=== PATIENT | male | born 1950 | race Caucasian/White ===

== ENCOUNTER 2019-11-02 03:05 | Inpatient (IN) | payer MEDICARE, MEDICAID ==
[~2019-11-02] VITALS: Ht 185.4 cm; Wt 80.2 kg
[2019-11-02] MEDS ORDERED: HEPARIN 1,000 UNITS/ml 1ML VIAL IV ONE (03:30)
[2019-11-02] MEDS ORDERED: MORPHINE SULFATE 4 MG/ML SYR/VIAL IV ONE ×3 (03:30→04:00)
[2019-11-02] MEDS ORDERED: METOPROLOL TARTRATE 25 MG TAB PO ONE (03:30)
[2019-11-02] MEDS ORDERED: ATORVASTATIN 20 MG TAB PO ONE (03:30)
[2019-11-02] MEDS ORDERED: NITROGLYCERIN 0.4 MG SL TAB SL PRN ×2 (03:30→05:45)
[2019-11-02] MEDS ORDERED: ASPirin 81 mg TAB PO ONE (03:30)
[2019-11-02] MEDS ORDERED: ONDANSETRON HCL 4 MG/2 ML VIAL ONE (03:33)
[2019-11-02] MEDS ORDERED: METOPROLOL TARTRATE 25 MG TAB ONE (03:35)
[2019-11-02] MEDS ORDERED: ASPirin 325 MG TAB ONE (03:36)
[2019-11-02] MEDS ORDERED: HEPARIN SODIUM (PORCINE) 5000 UNITS/ML 1ML VIAL ONE (03:36)
[2019-11-02] MEDS ORDERED: ONDANSETRON HCL 4 MG/2 ML VIAL IV ONE (03:45)
[2019-11-02] MEDS ORDERED: HEPARIN IN NS 1000Units/500mL 1,500 ML ONE (03:53)
[2019-11-02] MEDS ORDERED: LIDOCAINE 2%HCL (LOCAL ANESTH.) INJ 20ML MDV ONE (03:53)
[2019-11-02] MEDS ORDERED: IOHEXOL 350 MG/ML 100ML IJ ONE ×2 (03:53→04:54)
[2019-11-02] MEDS: MORPHINE SULF INJ 2 MG/ML SYRINGE 1ML ONE ×2 (03:59→04:09)
[2019-11-02 04:01] LABS: Basophils # (auto) 0.1 uL; Basophils % (auto) 0.8 % (0.0-2.0); Eosinophils # (auto) 0.4 uL; Eosinophils % (auto) 5.1 % (0.0-7.0); Hematocrit 49.1 % (41.0-53.0); Hemoglobin 16.6 g/dL (13.5-17.5); Lymphocytes # (auto) 2.6 uL; Lymphocytes % (auto) 33.7 % (10.0-50.0); Mean Corpuscular Hemoglobin 30.4 pg (28.0-32.0); Mean Corpuscular Hgb Conc. 33.9 g/dL (32.0-36.0); Mean Corpuscular Volume 89.6 fL (80.0-100.0); Monocytes # (auto) 0.7 uL; Monocytes % (auto) 8.6 % (0.0-12.0); Neutrophils % (auto) 51.8 % (37.0-80.0); Nucleated Red Blood Cells % 0.1 %; Platelet Count (auto) 205 10^3/uL (140-450); Red Blood Cells 5.48 10^6/uL (4.5-5.90); Red Cell Distribution Width 14.5 % (11.8-14.3); White Blood Cell 7.8 10^3/uL (4.4-10.8)
[2019-11-02] MEDS ORDERED: ANGIOMAX 250 MG VIAL IV ONE (04:05)
[2019-11-02] MEDS ORDERED: SODIUM CHL 0.9% 50 ML ONE (04:06)
[2019-11-02] MEDS ORDERED: fentaNYL CITRATE 100 MCG/2 ML VL ONE (04:06)
[2019-11-02] MEDS ORDERED: MIDAZOLAM HCL 1MG/1ML-2 ML VIAL ONE (04:06)
[2019-11-02] MEDS ORDERED: ATROPINE SULF 1 MG/10ml SYR ONE (04:09)
[2019-11-02 04:17] LABS: INR 1.05 (0.9-1.15); Partial Thromboplastin Time 26.8 sec (23.64-32.05)
[2019-11-02 04:30] LABS: Albumin 3.6 g/dL (3.4-5.0); Calcium 9.3 mg/dL (8.5-10.1); Magnesium 2.2 mg/dL (1.6-2.6); Potassium 4.3 mmol/L (3.5-5.1)
[2019-11-02 04:35] LABS: BUN/Creatinine Ratio 13.9; Bilirubin, Total 0.3 mg/dL (0.2-1.0); Total Protein 8.1 g/dL (6.4-8.2)
[2019-11-02] MEDS ORDERED: EPTIFIBATIDE INJ (2MG/ML) 10ML VIAL IV ONE ×2 (04:40→04:44)
[2019-11-02] MEDS ORDERED: TICAGRELOR 90 MG TAB ONE (05:01)
[2019-11-02] MEDS ORDERED: MORPHINE SULF INJ 2 MG/ML SYRINGE 1ML IV PRN (05:45)
--- NOTE | 2019-11-02 06:24 | NUR ---
Telemetry admit from ER Patient admitted to Telemetry unit and oriented to primary RN, unit, room, bed, and unit policies regarding patient care and visiting hours. Patient now on continuous telemetry monitoring, tele box # [id number] and telemetry reading on arrival to unit is sinus rhythm. Patient weighed by bedscale and encouraged to call if they need something. All questions and concerns addressed, patient verbalized understanding.
[2019-11-02] MEDS ORDERED: NAP500T PO (06:54)
[2019-11-02] MEDS ORDERED: TAMS0.4C36 PO (06:54)
--- NOTE | 2019-11-02 08:00 | NUR ---
OPENING SHIFT NOTE ASSUMED CARE OF PATIENT AWAKE AND ALERT. NO S/S OF DISTRESS NOTED OR COMPLAINTS OF PAIN. RIGHT WRIST SITE HAS DRESSING IN PLACE. SAFEGAURD IS APPLIED TO RIGHT GROIN SITE. 20ML OF AIR TAKEN OUT BY NOC NURSE. SITE IS NONTENDER, NO SWELLING OR ECCHYMOSIS NOTED. PT IS TO REMAIN FLAT UNTIL 0930, HE VERBALIZES UNDERSTANDING. PT UPDATED ON POC FOR THE DAY AND ALL QUESTIONS ANSWERED. BED IS IN LOWEST, LOCKED POSITION WITH SIDE RAILS UP X2 AND CALL LIGHT WITHIN REACH. WILL CONTINUE TO MONITOR Q1H AND PRN.
[2019-11-02 09:26] VITALS: BP 95/62
--- NOTE | 2019-11-02 10:20 | NUR ---
SAFEGAURD 10ML OF AIR TAKEN OUT OF SAFEGAURD. SITE IS NONTENDER, NO SWELLING OR ECCHYMOSIS NOTED. WILL CONTINUE TO MONITOR.
--- NOTE | 2019-11-02 10:45 | NUR ---
CRITICAL TROP RECEIVED CALL FROM CHEMISTRY REGARDING A CRITICAL TROPONIN OF 68.3. THIS IS AN EXPECTED FINDING AFTER A CARDIAC CATHETERIZATION, MD WILL NOT BE NOTIFIED. WILL CONTINUE TO MONITOR PATIENT.
--- NOTE | 2019-11-02 10:50 | NUR ---
SAFEGAURD ANOTHER 10ML OF AIR WAS TAKEN OUT OF SAFEGAURD AT RIGHT GROIN. SITE IS STILL ASYMPTOMATIC, NO SWELLING, TENDERNESS, OR ECHHYMOSIS NOTED. WILL CONTINUE TO MONITOR.
[2019-11-02 11:00] LABS: Urine Bacteria NONE SEEN /hpf (None Seen); Urine Blood 2+ /uL (Negative); Urine WBC 5 /hpf (0 - 3)
[2019-11-02 11:14] LABS: Alcohol, Urine < 3.0 mg/dL (0-5); Amphetamine Screen, Urine POSITIVE (NEGATIVE); Barbiturate Scree,Urine NEGATIVE (NEGATIVE); Benzodiazephine Screen, Urine POSITIVE (NEGATIVE); Cannabinoid Screen, Urine POSITIVE (NEGATIVE); Cocaine Screen, Urine NEGATIVE (NEGATIVE); Phencyclidine Screen, Urine NEGATIVE (NEGATIVE)
[2019-11-02 11:18] LABS: Urine Specific Gravity > 1.050 (1.001-1.035)
[2019-11-02 11:21] LABS: Opiate Scree,Urine POSITIVE (NEGATIVE)
--- NOTE | 2019-11-02 12:00 | NUR ---
SAFEGAURD ANOTHER 10ML OF AIR WAS TAKEN OUT OF SAFEGAURD AT RIGHT GROIN. TOTAL OF 60 OUT SO FAR. SITE IS STILL ASYMPTOMATIC, NO SWELLING, TENDERNESS, OR ECHHYMOSIS NOTED. WILL CONTINUE TO MONITOR.
[2019-11-02 13:00] VITALS: BP 91/59
--- NOTE | 2019-11-02 14:00 | NUR ---
SAFEGAURD SAFEGAURD REMOVED, CLEAR DRESSING APPLIED. SITE IS SOFT AND NONTENDER WITH NO ECCHYMOSIS NOTED. WILL CONTINUE TO MONITOR.
[2019-11-02] MEDS: SODIUM CHLORIDE 0.9% 500 ML IV SCH ×2 (14:10→18:48)
[2019-11-02 17:03] VITALS: BP 97/62
[2019-11-02 22:00] VITALS: BP 97/61
[2019-11-03] MEDS: SODIUM CHLORIDE 0.9% 500 ML IV SCH ×2 (00:24→04:30)
[2019-11-03 05:00] VITALS: BP 103/60
--- NOTE | 2019-11-03 08:00 | NUR ---
OPENING SHIFT NOTE ASSUMED CARE OF PATIENT RESTING IN BED. RIGHT GROIN CATH SITE ASSESSED. SITE IS SOFT, NO ECCHYMOSIS NOTED, PATIENT DOES SAY THE SITE IS TENDER TO THE TOUCH. PT UPDATED ON POC FOR THE DAY AND ALL QUESTIONS ANSWERED. BED IS IN LOWEST, LOCKED POSITION WITH SIDE RAILS UP X2 AND CALL LIGHT WITHIN REACH. WILL CONTINUE TO MONITOR Q1H AND PRN.
[2019-11-03 09:00] VITALS: BP 104/62
[2019-11-03 13:00] VITALS: BP 119/78
[2019-11-03 17:00] VITALS: BP 123/72
--- NOTE | 2019-11-03 17:24 | NUR ---
DR HIGINIO SYLVESTER IN TO SEE PATIENT. INFORMED PATIENT OF POSSIBLE DISCHARGE TOMORROW.
[2019-11-03] MEDS ORDERED: TAMSULOSIN HYDROCHLORIDE 0.4 MG CAP PO ONE (21:51)
[2019-11-03 22:00] VITALS: BP 122/96
[2019-11-03] MEDS ORDERED: ATORVASTATIN 20 MG TAB PO SCH (22:00)
[2019-11-03] MEDS ORDERED: ACETAMINOPHEN 325 MG TAB PO PRN (22:00)
[2019-11-04 05:00] VITALS: BP 90/67
--- NOTE | 2019-11-04 08:00 | NUR ---
OPENING SHIFT NOTE ASSUMED CARE OF PATIENT RESTING WITH EVEN RESPIRATIONS. BED IS IN LOWEST, LOCKED POSITION WITH SIDE RAILS UP X2 AND CALL LIGHT WITHIN REACH. WILL CONTINUE TO MONITOR.
[2019-11-04 09:00] VITALS: BP 108/73
[2019-11-04] MEDS ORDERED: CLOPIDOGREL BISULFATE 75 MG TAB PO SCH (10:00)
[2019-11-04] MEDS ORDERED: ASPirin-EC 81 mg tab PO SCH (10:00)
[2019-11-04 13:00] VITALS: BP 105/73
[2019-11-04 17:00] VITALS: BP 106/68
--- NOTE | 2019-11-04 17:38 | NUR ---
Discharge instructions given as ordered. Encourage to follow up with PMD and staff mine warfare officer as instructed. All questions and concerns addressed. Patient verbalized understanding. Both IVs removed with catheter intact, pressure dressing applied. Telemetry unit returned to ICU. Patient ambulated to vehicle with all personal belongings, accompanied by family member. No distress noted at time of departure.
[2019-11-04] MEDS ORDERED: TAMSULOSIN HYDROCHLORIDE 0.4 MG CAP PO SCH (18:00)
[2019-11-05] MEDS ORDERED: METOPROLOL SUCCINATE XL 50 MG TAB PO SCH (10:00)
== END 2019-11-04 17:38 | disposition home or self-care (01) | DRG 246 ==
LOC: ER 03:05 → TELE-CENTR 03:06
PROVIDERS: ADMIT Internal Medicine Cardiovascular Disease; ATTEND Internal Medicine Cardiovascular Disease
PROC: B2111ZZ Fluoroscopy of Multiple Coronary Arteries using Low Osmolar Contrast (ICD-10-PCS; principal; 2019-11-02)
PROC: 027135Z Dilation of Coronary Artery, Two Arteries with Two Drug-eluting Intraluminal Devices, Percutaneous Approach (ICD-10-PCS; 2019-11-02)
DX: I21.19 ST elevation (STEMI) myocardial infarction involving other coronary artery of inferior wall (principal); I50.21 Acute systolic (congestive) heart failure; F15.10 Other stimulant abuse, uncomplicated; J44.9 Chronic obstructive pulmonary disease, unspecified; Z88.8 Allergy status to other drugs, medicaments and biological substances; Z72.0 Tobacco use; I11.0 Hypertensive heart disease with heart failure
CPT/HCPCS: 36415; 71045; 80053; 80307; 81001; 82565; 83735; 83880; 84484; 85025; 85610; 85730; 92928; 93005; 93454; 96361; 96374; 96375; 99152; 99153; 99291; C1874; C1887; G0378; J2250; J2405

== ENCOUNTER → 2019-11-14 | Outpatient (CLI) | payer MEDICARE, MEDICAID ==
[~2019-11-14] MED LIST: NAP500T PO; TAMS0.4C36 PO
== END | disposition home or self-care (01) ==
LOC: Rad HDHVI 14:29
PROVIDERS: ATTEND Internal Medicine Cardiovascular Disease
DX: R07.9 Chest pain, unspecified (principal); R00.2 Palpitations; R42 Dizziness and giddiness
CPT/HCPCS: 93306

== ENCOUNTER → 2019-11-19 | Outpatient (CLI) | payer MEDICARE, MEDICAID ==
[~2019-11-19] VITALS: Ht 185.4 cm; Wt 83.9 kg
== END | disposition home or self-care (01) ==
LOC: Rad HDHVI 13:15
PROVIDERS: ATTEND Internal Medicine Cardiovascular Disease
DX: R07.9 Chest pain, unspecified (principal)
CPT/HCPCS: 78452; 93017; 96374; A9500